=== PATIENT | female | born 1955 | race Caucasian/White ===

== ENCOUNTER 2024-07-16 09:42 | Day surgery (SDC) | payer MEDICARE, SELFPAY ==
[2024-07-16 10:12] VITALS: BP 146/91; PULSE 95; RESP 18; TEMP 36.5; O2SAT 100
[2024-07-16] MEDS: LACTATED RINGERS 1,000 ML 42 ML IV (10:28)
--- NOTE | 2024-07-16 11:09 | P.HP_ITS ---
History of Present Illness History of Present Illness Chief complaint: Colonoscopy Narrative: Colorectal cancer screening with colonoscopy [facility] Social History alcohol intake: never Meds Home Medications and Allergies Home Medications Medication Instructions Recorded Confirmed Type escitalopram oxalate 20 mg tablet 20 mg PO DAILY 07/16/24 07/16/24 History lisinopril 10 mg tablet 10 mg PO DAILY blood pressure 07/16/24 07/16/24 History rosuvastatin 10 mg tablet 10 mg PO DAILY 07/16/24 07/16/24 History Allergies Allergy/AdvReac Type Severity Reaction Status Date / Time No Known Drug Allergies Allergy Verified 07/16/24 10:07 Exam Vital Signs (past 8 hours): - 07/16/24 10:12 Temperature 97.7 F Pulse Rate 95 H Respiratory Rate 18 Blood Pressure 146/91 H Pulse Oximetry 100 Oxygen Delivery Method Room Air Oxygen Flow Rate 0 Oxygen Delivery Method Room Air Oxygen Flow Rate 0 Narrative Exam Narrative: Oropharynx free of lesions Chest clear to auscultation percussion Cardiac exam reveals no S3 or murmur Assessment & Plan Assessment & Plan narrative: Need for colonoscopy for colorectal cancer screening. Last prior to 10 years ago. Risks, benefits, alternatives have been explained. Time-Based Coding :: [TOTAL MINUTES] spent with patient and on the chart (including review of chart, obtaining history, exam, reviewing outside data, placing orders, documenting exam and treatment plan, and counseling patient) on [DATE].
--- NOTE | 2024-07-16 11:10 | PM.OP.COLON ---
Operative Date/Time/Diagnoses Date of procedure: 07/16/24 Pre-op diagnosis: See indication and findings Procedure & Clinicians Study performed: Colonoscopy Indications: Screening Surgeon: Zach Avilez Procedure Notes Procedure in detail: After informed consent was obtained the patient was placed in the left lateral decubitus position. The video colonoscope was introduced the rectum slowly advanced cecum. Preparation was good. On slow withdrawal mucosa was carefully examined. The scope was removed. The patient tolerated the procedure well. Blood loss none Complications none Sedation mac Findings 1. Normal colonoscopy to cecum Patient should have follow-up colonoscopy in 10 years
[2024-07-16 11:30] VITALS: BP 120/86; PULSE 84; RESP 13; TEMP 36.7; O2SAT 97
[2024-07-16 11:35] VITALS: BP 126/78; PULSE 85; RESP 18; O2SAT 98
[2024-07-16 11:40] VITALS: BP 133/88; PULSE 81; RESP 12; TEMP 36.2; O2SAT 99
[2024-07-16 11:46] VITALS: BP 140/77; PULSE 75; RESP 12; O2SAT 97
== END 2024-07-16 11:59 | disposition home or self-care (01) ==
PROVIDERS: PCP Nurse Practitioner Family; Referring Provider Internal Medicine Gastroenterology; Visit Provider Internal Medicine Gastroenterology
PROC: 0DJD8ZZ Inspection of Lower Intestinal Tract, Via Natural or Artificial Opening Endoscopic (ICD-10-PCS; CPT 45378; principal; 2024-07-16 11:00)
DX: Z12.11 Encounter for screening for malignant neoplasm of colon (principal)
CPT/HCPCS: G0121; J2704